=== PATIENT | male | born 1955 | race Caucasian/White ===

== ENCOUNTER 2017-10-19 22:39 | Inpatient (IN) | payer OTHER ==
[2017-10-19] MEDS: ALBUTEROL 0.5% (NEB) 2.5 MG/0.5 ML AMP INH (23:16)
[2017-10-19 23:19] LABS: ADD MAN DIFF? NO
[2017-10-19] MEDS: DEXTROSE 50% 50 ML SYRINGE IV (23:19)
[2017-10-19 23:21] LABS: BASOPHILS % 0.7 % (0.0-2.0); EOSINOPHILS # 0.1 10^3/ul (0.0-0.5); HEMOGLOBIN 10.1 g/dl (14.0-18.0); LYMPHOCYTES # 1.3 10^3/ul (0.8-2.9); LYMPHOCYTES % 29.3 % (15.0-51.0); MEAN CORPUSCULAR HEMOGLOBIN 29.5 pg (29.0-33.0); MEAN CORPUSCULAR HGB CONC 32.6 g/dl (32.0-37.0); MEAN CORPUSCULAR VOLUME 90.6 fl (82.0-101.0); MEAN PLATELET VOLUME 11.5 fl (7.4-10.4); MONOCYTE # 0.5 10^3/ul (0.3-0.9); MONOCYTES % 10.9 % (0.0-11.0); NEUTROPHIL # 2.4 10^3/ul (1.6-7.5); NEUTROPHILS % 55.9 % (39.0-77.0); PLATELET COUNT 145 10^3/UL (140-415); RED BLOOD COUNT 3.42 10^6/ul (4.70-6.10); RED CELL DISTRIBUTION WIDTH 12.7 % (11.5-14.5)
[2017-10-19 23:21] LABS: WHITE BLOOD COUNT 4.3 10^3/ul (4.8-10.8)
[2017-10-19] MEDS: CA CHLORIDE 10% 10 ML SYRINGE IV (23:23)
[2017-10-19] MEDS: INSULIN REGULAR, HUMAN 100 UNIT/1 ML 3ML VIAL IVP (23:26)
[2017-10-19 23:36] LABS: INR 1.17; PROTIME 15.1 Sec (11.9-14.9); PT RATIO 1.2
[2017-10-19 23:49] LABS: ALANINE AMINOTRANSFERASE 27 IU/L (13-69); ALBUMIN 3.7 g/dl (3.3-4.9); ALBUMIN/GLOBULIN RATIO 1.42; ALKALINE PHOSPHATASE 75 IU/L (42-121); ANION GAP 28 (8-16); ASPARTATE AMINO TRANSFERASE 11 IU/L (15-46); BLOOD UREA NITROGEN 90 mg/dl (7-20); CALCIUM 8.4 mg/dl (8.4-10.2); CARBON DIOXIDE 19 mmol/L (21-31); CHLORIDE 93 mmol/L (97-110); GLUCOSE 102 mg/dl (70-220); PHOSPHORUS 8.2 mg/dl (2.5-4.9); SODIUM 133 mmol/L (135-144); TOTAL PROTEIN 6.3 g/dl (6.1-8.1)
[2017-10-19 23:53] LABS: POTASSIUM 7.1 mmol/L (3.5-5.1)
[2017-10-19 23:58] LABS: CREATININE 22.18 mg/dl (0.61-1.24); TROPONIN-I 0.037 ng/ml (0.00-0.12)
[2017-10-20] MEDS: NA POLYST SULFON 15 GM/60 ML BTL PO ×2 (02:25→03:18)
[2017-10-20] MEDS ORDERED: ALBUTEROL/IPRATROPIUM (NEB) 3 ML AMP NEB ×2 (02:30→18:30)
[2017-10-20] MEDS ORDERED: ONDANSETRON 4 MG INJ IV (02:30)
[2017-10-20] MEDS ORDERED: NACL 0.9% 3 ML SYG IV (02:30)
[2017-10-20 02:34] LABS: POTASSIUM 5.1 mmol/L (3.5-5.1)
[2017-10-20] MEDS: PANTOPRAZOLE 40 MG INJ IV (03:17)
[2017-10-20 03:23] LABS: TROPONIN-I 0.027 ng/ml (0.00-0.12)
[2017-10-20] MEDS: ALBUTEROL/IPRATROPIUM (NEB) 3 ML AMP NEB ×4 (04:00→16:28)
[2017-10-20] MEDS ORDERED: SOD CHLORIDE 0.9% 1,000 ML IV ×2 (06:35→18:40)
[2017-10-20] MEDS ORDERED: HEPARIN 1000 UNITS/ML 10 ML INJ HE (07:00)
[2017-10-20] MEDS ORDERED: ALBUMIN HUMAN 25% 50 ML IV ×2 (07:00→19:00)
[2017-10-20 11:01] LABS: ANION GAP 30 (8-16); BLOOD UREA NITROGEN 89 mg/dl (7-20); CALCIUM 9.2 mg/dl (8.4-10.2); CARBON DIOXIDE 18 mmol/L (21-31); CHLORIDE 96 mmol/L (97-110); GLUCOSE 93 mg/dl (70-220); SODIUM 139 mmol/L (135-144)
[2017-10-20 11:06] LABS: POTASSIUM 5.2 mmol/L (3.5-5.1)
[2017-10-20 11:07] LABS: CREATININE 22.83 mg/dl (0.61-1.24)
[2017-10-20 11:12] LABS: TROPONIN-I 0.022 ng/ml (0.00-0.12)
[2017-10-20 11:31] LABS: HEPATITIS B SURFACE ANTIGEN NEGATIVE (NEGATIVE)
[2017-10-20] MEDS: HEPARIN 1000 UNITS/ML 10 ML INJ CATHETER (11:56)
[2017-10-20] MEDS: AMLODIPINE 10 MG TAB PO (11:59)
[2017-10-20] MEDS: PANTOPRAZOLE (EC) 40 MG TAB PO (11:59)
[2017-10-20] MEDS: FOLIC ACID 1 MG TAB PO (11:59)
[2017-10-20] MEDS: SEVELAMER 800 MG TAB PO ×3 (11:59→18:40)
[2017-10-20] MEDS: CALCIUM ACETATE 667 MG CAP PO ×3 (11:59→18:40)
[2017-10-20 12:12] LABS: HEPATITIS B SURFACE ANTIBODY POSITIVE (NEGATIVE)
[2017-10-20 14:26] LABS: POTASSIUM 4.3 mmol/L (3.5-5.1)
[2017-10-20 14:28] LABS: TROPONIN-I 0.032 ng/ml (0.00-0.12)
[2017-10-20] MEDS: ISOSORBIDE DINITRATE 10 MG TAB PO ×2 (17:13→20:43)
[2017-10-20] MEDS ORDERED: LORAZEPAM 0.5 MG TAB PO (18:00)
[2017-10-20] MEDS ORDERED: LORAZEPAM 2 MG INJ IV (18:30)
[2017-10-20] MEDS ORDERED: SODIUM CHLORIDE 0.9% 1L BAG IV (19:00)
[2017-10-20 19:30] LABS: CREATINE KINASE 235 IU/L (23-200)
[2017-10-20 19:43] LABS: CK INDEX 0.3; TROPONIN-I 0.033 ng/ml (0.00-0.12)
[2017-10-20 19:44] LABS: CK-MB 0.76 ng/ml (0.0-2.4)
[2017-10-20] MEDS: ATORVASTATIN 10 MG TAB PO (20:43)
[2017-10-20] MEDS: DOXAZOSIN 4 MG TAB PO (20:43)
[2017-10-20] MEDS: ONDANSETRON 4 MG INJ IV (20:44)
[2017-10-20] MEDS: ACETAMINOPHEN 325 MG TAB PO (20:55)
[2017-10-20] MEDS ORDERED: DOXAZOSIN 2 MG TAB PO ×2 (21:00)
[2017-10-21] MEDS: PANTOPRAZOLE (EC) 40 MG TAB PO (05:27)
[2017-10-21 06:24] LABS: ADD MAN DIFF? NO
[2017-10-21 06:27] LABS: BASOPHILS % 0.4 % (0.0-2.0); EOSINOPHILS # 0.1 10^3/ul (0.0-0.5); EOSINOPHILS % 2.4 % (0.0-7.0); HEMATOCRIT 29.3 % (42.0-52.0); HEMOGLOBIN 9.5 g/dl (14.0-18.0); LYMPHOCYTES # 1.1 10^3/ul (0.8-2.9); LYMPHOCYTES % 24.2 % (15.0-51.0); MEAN CORPUSCULAR HEMOGLOBIN 29.3 pg (29.0-33.0); MEAN CORPUSCULAR HGB CONC 32.4 g/dl (32.0-37.0); MEAN CORPUSCULAR VOLUME 90.4 fl (82.0-101.0); MEAN PLATELET VOLUME 11.4 fl (7.4-10.4); MONOCYTE # 0.4 10^3/ul (0.3-0.9); MONOCYTES % 8.7 % (0.0-11.0); NEUTROPHILS % 63.9 % (39.0-77.0); PLATELET COUNT 142 10^3/UL (140-415); RED BLOOD COUNT 3.24 10^6/ul (4.70-6.10); RED CELL DISTRIBUTION WIDTH 13.2 % (11.5-14.5)
[2017-10-21 06:27] LABS: WHITE BLOOD COUNT 4.6 10^3/ul (4.8-10.8)
[2017-10-21 07:31] LABS: ANION GAP 25 (8-16); BLOOD UREA NITROGEN 60 mg/dl (7-20); CALCIUM 8.5 mg/dl (8.4-10.2); CARBON DIOXIDE 26 mmol/L (21-31); CHLORIDE 97 mmol/L (97-110); GLUCOSE 82 mg/dl (70-220); POTASSIUM 5.7 mmol/L (3.5-5.1); SODIUM 142 mmol/L (135-144)
[2017-10-21 07:40] LABS: CREATININE 17.07 mg/dl (0.61-1.24)
[2017-10-21 08:01] LABS: PHOSPHORUS 6.9 mg/dl (2.5-4.9)
[2017-10-21 08:01] LABS: MAGNESIUM 2.2 mg/dl (1.7-2.5)
[2017-10-21] MEDS: ISOSORBIDE DINITRATE 10 MG TAB PO ×2 (09:00→22:12)
[2017-10-21] MEDS: AMLODIPINE 10 MG TAB PO (09:00)
[2017-10-21] MEDS: DOXAZOSIN 4 MG TAB PO ×2 (09:00→22:12)
[2017-10-21] MEDS: LEVOFLOXACIN 500 MG TAB PO (09:48)
[2017-10-21] MEDS: CALCIUM ACETATE 667 MG CAP PO ×3 (09:48→17:20)
[2017-10-21] MEDS: FOLIC ACID 1 MG TAB PO (09:48)
[2017-10-21] MEDS: SEVELAMER 800 MG TAB PO ×3 (09:48→17:20)
[2017-10-21] MEDS: ONDANSETRON 4 MG INJ IV (11:18)
[2017-10-21] MEDS: GUAIFENESIN/CODEINE 5ML CUP PO ×2 (13:18→22:11)
[2017-10-21] MEDS: HEPARIN 1000 UNITS/ML 10 ML INJ CATHETER (22:00)
[2017-10-21] MEDS: ATORVASTATIN 10 MG TAB PO (22:11)
[2017-10-21] MEDS: NA POLYST SULFON 15 GM/60 ML BTL PO (22:43)
[2017-10-22] MEDS: PANTOPRAZOLE (EC) 40 MG TAB PO (06:46)
[2017-10-22 07:47] LABS: ANION GAP 20 (8-16); BLOOD UREA NITROGEN 34 mg/dl (7-20); CALCIUM 9.4 mg/dl (8.4-10.2); CARBON DIOXIDE 29 mmol/L (21-31); CHLORIDE 97 mmol/L (97-110); CREATININE 10.97 mg/dl (0.61-1.24); GLUCOSE 85 mg/dl (70-220); SODIUM 140 mmol/L (135-144)
[2017-10-22 07:52] LABS: POTASSIUM 6.2 mmol/L (3.5-5.1)
[2017-10-22] MEDS ORDERED: CA CHLORIDE 10% 10 ML SYRINGE IV (08:32)
[2017-10-22] MEDS: DOXAZOSIN 4 MG TAB PO ×2 (09:00→21:36)
[2017-10-22] MEDS: AMLODIPINE 10 MG TAB PO (09:00)
[2017-10-22] MEDS ORDERED: CALCIUM CHLORIDE 10% 1 GM in DEXTROSE 5% 100 ML IV (09:00)
[2017-10-22] MEDS: ISOSORBIDE DINITRATE 10 MG TAB PO ×2 (09:00→21:00)
[2017-10-22] MEDS: SEVELAMER 800 MG TAB PO ×4 (09:09→18:47)
[2017-10-22] MEDS: NA POLYST SULFON 15 GM/60 ML BTL PO (09:10)
[2017-10-22] MEDS: CALCIUM ACETATE 667 MG CAP PO ×4 (09:10→18:47)
[2017-10-22] MEDS: FOLIC ACID 1 MG TAB PO (09:10)
[2017-10-22] MEDS: ALBUTEROL 0.083% (NEB) 2.5 MG/3 ML AMP NEB (09:26)
[2017-10-22] MEDS: DEXTROSE 50% 50 ML SYRINGE IV (11:46)
[2017-10-22] MEDS: INSULIN REGULAR, HUMAN 100 UNIT/1 ML 3ML VIAL IV (11:47)
[2017-10-22] MEDS ORDERED: CALCIUM ACETATE 667 MG CAP PO (12:00)
[2017-10-22] MEDS: HEPARIN 1000 UNITS/ML 10 ML INJ CATHETER (13:28)
[2017-10-22] MEDS: GLUCAGON 1 MG INJ IM (16:07)
[2017-10-22] MEDS: ATORVASTATIN 10 MG TAB PO (21:35)
[2017-10-23 06:04] LABS: WHITE BLOOD COUNT 4.6 10^3/ul (4.8-10.8)
[2017-10-23 06:04] LABS: ADD MAN DIFF? NO
[2017-10-23 06:05] LABS: BASOPHILS % 0.4 % (0.0-2.0); EOSINOPHILS # 0.2 10^3/ul (0.0-0.5); EOSINOPHILS % 3.3 % (0.0-7.0); HEMATOCRIT 34.8 % (42.0-52.0); LYMPHOCYTES # 1.2 10^3/ul (0.8-2.9); LYMPHOCYTES % 26.4 % (15.0-51.0); MEAN CORPUSCULAR HGB CONC 31.6 g/dl (32.0-37.0); MEAN CORPUSCULAR VOLUME 91.8 fl (82.0-101.0); MEAN PLATELET VOLUME 10.9 fl (7.4-10.4); MONOCYTE # 0.4 10^3/ul (0.3-0.9); MONOCYTES % 9.2 % (0.0-11.0); NEUTROPHIL # 2.8 10^3/ul (1.6-7.5); NEUTROPHILS % 60.5 % (39.0-77.0); PLATELET COUNT 163 10^3/UL (140-415); RED BLOOD COUNT 3.79 10^6/ul (4.70-6.10); RED CELL DISTRIBUTION WIDTH 12.7 % (11.5-14.5)
[2017-10-23] MEDS: PANTOPRAZOLE (EC) 40 MG TAB PO (06:05)
[2017-10-23 06:52] LABS: MAGNESIUM 2.1 mg/dl (1.7-2.5)
[2017-10-23 06:52] LABS: PHOSPHORUS 4.8 mg/dl (2.5-4.9)
[2017-10-23 07:16] LABS: ALANINE AMINOTRANSFERASE 35 IU/L (13-69); ALBUMIN/GLOBULIN RATIO 1.48; ALKALINE PHOSPHATASE 60 IU/L (42-121); ANION GAP 19 (8-16); ASPARTATE AMINO TRANSFERASE 29 IU/L (15-46); BLOOD UREA NITROGEN 33 mg/dl (7-20); CALCIUM 9.3 mg/dl (8.4-10.2); CARBON DIOXIDE 31 mmol/L (21-31); CHLORIDE 98 mmol/L (97-110); CREATININE 9.57 mg/dl (0.61-1.24); GLUCOSE 99 mg/dl (70-220); POTASSIUM 4.8 mmol/L (3.5-5.1); SODIUM 143 mmol/L (135-144); TOTAL PROTEIN 6.7 g/dl (6.1-8.1)
[2017-10-23] MEDS: SEVELAMER 800 MG TAB PO ×3 (08:23→17:42)
[2017-10-23] MEDS: CALCIUM ACETATE 667 MG CAP PO ×3 (08:24→17:42)
[2017-10-23] MEDS: DOXAZOSIN 4 MG TAB PO (08:25)
[2017-10-23] MEDS: ISOSORBIDE DINITRATE 10 MG TAB PO (08:26)
[2017-10-23] MEDS: FOLIC ACID 1 MG TAB PO (08:26)
[2017-10-23] MEDS: AMLODIPINE 10 MG TAB PO (08:26)
[2017-10-23] MEDS: AZITHROMYCIN 250 MG TAB PO (08:27)
[2017-10-23] MEDS: ONDANSETRON 4 MG INJ IV (15:26)
[2017-10-23 17:25] LABS: ANION GAP 19 (8-16); BLOOD UREA NITROGEN 40 mg/dl (7-20); CALCIUM 9.1 mg/dl (8.4-10.2); CARBON DIOXIDE 29 mmol/L (21-31); CHLORIDE 95 mmol/L (97-110); CREATININE 10.41 mg/dl (0.61-1.24); GLUCOSE 105 mg/dl (70-220); POTASSIUM 4.7 mmol/L (3.5-5.1); SODIUM 138 mmol/L (135-144)
[2017-10-23] MEDS: hydrALAzine 20 MG INJ IV (18:59)
== END 2017-10-23 20:16 | disposition home or self-care (01) | DRG 640 ==
LOC: E/R 22:39 → MS4 10-20 02:16
PROC: 5A1D70Z Performance of Urinary Filtration, Intermittent, Less than 6 Hours Per Day (ICD-10-PCS; principal; 2017-10-22)
DX: E87.5 Hyperkalemia (principal); N18.6 End stage renal disease; E11.22 Type 2 diabetes mellitus with diabetic chronic kidney disease; N17.9 Acute kidney failure, unspecified; I12.0 Hypertensive chronic kidney disease with stage 5 chronic kidney disease or end stage renal disease; E83.41 Hypermagnesemia; Z99.2 Dependence on renal dialysis; Z91.15 Patient's noncompliance with renal dialysis; R00.1 Bradycardia, unspecified; E83.39 Other disorders of phosphorus metabolism; D72.819 Decreased white blood cell count, unspecified; D63.1 Anemia in chronic kidney disease; E78.00 Pure hypercholesterolemia, unspecified; J20.9 Acute bronchitis, unspecified; N40.0 Benign prostatic hyperplasia without lower urinary tract symptoms
CPT/HCPCS: 36415; 71045; 78582; 80048; 80053; 82550; 82553; 82962; 83735; 84100; 84132; 84484; 85025; 85610; 85730; 86706; 86850; 86900; 86901; 87040; 87081; 87340; 90935; 93005; 94640; 94644; 94664; 96374; 96375; 99291-25

== ENCOUNTER 2018-05-10 09:50 | Inpatient (IN) | payer OTHER ==
[2018-05-10 11:03] LABS: ADD MAN DIFF? NO
[2018-05-10 11:06] LABS: WHITE BLOOD COUNT 6.3 10^3/ul (4.8-10.8)
[2018-05-10 11:06] LABS: BASOPHIL # 0.1 10^3/ul (0.0-0.1); BASOPHILS % 0.8 % (0.0-2.0); EOSINOPHILS # 0.2 10^3/ul (0.0-0.5); EOSINOPHILS % 3.2 % (0.0-7.0); HEMATOCRIT 35.4 % (42.0-52.0); HEMOGLOBIN 11.4 g/dl (14.0-18.0); LYMPHOCYTES # 0.7 10^3/ul (0.8-2.9); LYMPHOCYTES % 10.6 % (15.0-51.0); MEAN CORPUSCULAR HEMOGLOBIN 29.9 pg (29.0-33.0); MEAN CORPUSCULAR HGB CONC 32.2 g/dl (32.0-37.0); MEAN CORPUSCULAR VOLUME 92.9 fl (82.0-101.0); MEAN PLATELET VOLUME 10.8 fl (7.4-10.4); MONOCYTE # 0.4 10^3/ul (0.3-0.9); NEUTROPHIL # 4.9 10^3/ul (1.6-7.5); NEUTROPHILS % 78.1 % (39.0-77.0); PLATELET COUNT 201 10^3/UL (140-415); RED BLOOD COUNT 3.81 10^6/ul (4.70-6.10); RED CELL DISTRIBUTION WIDTH 14.7 % (11.5-14.5)
[2018-05-10 11:32] LABS: ANION GAP 15 (8-16); BLOOD UREA NITROGEN 38 mg/dl (7-20); CALCIUM 9.3 mg/dl (8.4-10.2); CARBON DIOXIDE 28 mmol/L (21-31); CHLORIDE 99 mmol/L (97-110); CREATININE 9.66 mg/dl (0.61-1.24); GLUCOSE 157 mg/dl (70-220); POTASSIUM 5.3 mmol/L (3.5-5.1); SODIUM 137 mmol/L (135-144)
[2018-05-10 11:35] LABS: INR 1.22; PROTIME 15.6 Sec (11.9-14.9); PT RATIO 1.2
[2018-05-10 11:43] LABS: TROPONIN-I 0.015 ng/ml (0.000-0.120)
[2018-05-10 12:23] LABS: MAGNESIUM 2.5 mg/dl (1.7-2.5)
[2018-05-10 12:26] LABS: PARTIAL THROMBOPLASTIN TIME 170.3 Sec (25.0-35.0)
[2018-05-10] MEDS ORDERED: ONDANSETRON 4 MG INJ IV ×3 (12:30→23:00)
[2018-05-10] MEDS ORDERED: ACETAMINOPHEN 325 MG TAB PO ×3 (12:30→23:00)
[2018-05-10] MEDS ORDERED: GUAIFENESIN/DM 5ML CUP PO (13:30)
[2018-05-10] MEDS ORDERED: DOCUSATE SODIUM 100 MG CAP PO (13:30)
[2018-05-10] MEDS ORDERED: NACL 0.9% 3 ML SYG IV (13:30)
[2018-05-10] MEDS ORDERED: BISACODYL 10 MG SUPP PR (13:30)
[2018-05-10] MEDS ORDERED: MAGNESIUM HYDROXIDE 30ML CUP PO (13:30)
[2018-05-10] MEDS: NA POLYST SULFON 15 GM/60 ML BTL PO (14:04)
[2018-05-10 14:24] LABS: FREE T4 (FREE THYROXINE) 1.59 ng/dl (0.78-2.44)
[2018-05-10] MEDS ORDERED: FAMOTIDINE 20 MG TAB PO ×2 (17:00→21:00)
[2018-05-10] MEDS: CALCIUM ACETATE 667 MG CAP PO (17:54)
[2018-05-10] MEDS: hydrALAzine 20 MG INJ IV (17:55)
[2018-05-10] MEDS: morphine 2 MG INJ IV (18:15)
[2018-05-10] MEDS: NITROGLYCERIN (SL) 0.4 MG TAB SL ×2 (18:19→19:59)
[2018-05-10] MEDS: AMLODIPINE 10 MG TAB PO (18:30)
[2018-05-10] MEDS: LISINOPRIL 20 MG TAB PO (18:31)
[2018-05-10 18:53] LABS: CREATINE KINASE 62 IU/L (23-200)
[2018-05-10 19:07] LABS: CK INDEX 1.5; CK-MB 0.91 ng/ml (0.0-2.4); TROPONIN-I 0.021 ng/ml (0.000-0.120)
[2018-05-10] MEDS: ENOXAPARIN 80 MG/0.8 ML SYG SC (19:15)
[2018-05-10] MEDS: ASPIRIN 81 MG TAB PO (19:15)
[2018-05-10 19:51] LABS: TROPONIN-I 0.028 ng/ml (0.000-0.120)
[2018-05-10] MEDS ORDERED: LIDOCAINE 1% (MDV) 20 ML INJ (19:59)
[2018-05-10] MEDS ORDERED: MIDAZOLAM 1 MG/ML 2 ML INJ ×2 (19:59→20:55)
[2018-05-10] MEDS ORDERED: FENTAnyl 50 MCG/ML VIAL ×2 (20:00→20:55)
[2018-05-10] MEDS ORDERED: VERAPAMIL 5 MG INJ (20:00)
[2018-05-10] MEDS ORDERED: IODIXANOL LOCM 100 ML BTL ×3 (20:01→21:38)
[2018-05-10] MEDS ORDERED: NITROGLYCERIN (IC) 100 MCG/ML INJ (20:01)
[2018-05-10] MEDS ORDERED: IOHEXOL 350MG/ML 50 ML BTL (20:01)
[2018-05-10] MEDS ORDERED: BIVALIRUDIN 250MG /NS 50 ML 50 ML IVPB ×2 (20:51→21:23)
[2018-05-10] MEDS ORDERED: DOXAZOSIN 4 MG TAB PO (21:00)
[2018-05-10] MEDS ORDERED: ATORVASTATIN 10 MG TAB PO (21:00)
[2018-05-10] MEDS ORDERED: TICAGRELOR 90 MG TABLET ×2 (21:04→21:05)
[2018-05-10] MEDS ORDERED: NITROGLYCERIN AEROSOL (4.9 GM) (21:48)
[2018-05-10] MEDS ORDERED: AL HYDROX/MG HYDROX/SIMETH 30 ML CUP PO (23:00)
[2018-05-10] MEDS ORDERED: CEFAZOLIN 1 GM/50 ML (PMX) 50 ML IVPB (23:08)
[2018-05-10] MEDS: HEPARIN 5,000 UNIT/0.5 ML VIAL SC (23:58)
[2018-05-10] MEDS: ISOSORBIDE DINITRATE 10 MG TAB PO (23:59)
[2018-05-11] MEDS: NITROGLYCERIN 50 MG/D5W (PMX) 250 ML IV
[2018-05-11] MEDS: morphine 2 MG INJ IV ×3 (01:37→10:19)
[2018-05-11 01:39] LABS: INR 4.74; PROTIME 46.2 Sec (11.9-14.9); PT RATIO 3.6
[2018-05-11 01:54] LABS: PARTIAL THROMBOPLASTIN TIME 133.7 Sec (25.0-35.0)
[2018-05-11 04:11] LABS: ADD MAN DIFF? NO
[2018-05-11 04:16] LABS: WHITE BLOOD COUNT 7.6 10^3/ul (4.8-10.8)
[2018-05-11 04:16] LABS: BASOPHILS % 0.5 % (0.0-2.0); EOSINOPHILS % 0.4 % (0.0-7.0); HEMOGLOBIN 10.9 g/dl (14.0-18.0); LYMPHOCYTES # 0.9 10^3/ul (0.8-2.9); LYMPHOCYTES % 11.8 % (15.0-51.0); MEAN CORPUSCULAR HEMOGLOBIN 30.4 pg (29.0-33.0); MEAN CORPUSCULAR VOLUME 91.9 fl (82.0-101.0); MEAN PLATELET VOLUME 9.9 fl (7.4-10.4); MONOCYTE # 0.5 10^3/ul (0.3-0.9); MONOCYTES % 6.7 % (0.0-11.0); NEUTROPHIL # 6.1 10^3/ul (1.6-7.5); NEUTROPHILS % 80.2 % (39.0-77.0); PLATELET COUNT 209 10^3/UL (140-415); RED BLOOD COUNT 3.59 10^6/ul (4.70-6.10); RED CELL DISTRIBUTION WIDTH 14.8 % (11.5-14.5)
[2018-05-11 04:36] LABS: INR 3.09; PROTIME 32.8 Sec (11.9-14.9); PT RATIO 2.6
[2018-05-11 04:43] LABS: ANION GAP 16 (8-16); BLOOD UREA NITROGEN 46 mg/dl (7-20); CALCIUM 8.8 mg/dl (8.4-10.2); CARBON DIOXIDE 24 mmol/L (21-31); CHLORIDE 103 mmol/L (97-110); CREATINE KINASE 316 IU/L (23-200); CREATININE 11.65 mg/dl (0.61-1.24); GLUCOSE 111 mg/dl (70-220); POTASSIUM 4.7 mmol/L (3.5-5.1); SODIUM 138 mmol/L (135-144)
[2018-05-11 04:48] LABS: ALANINE AMINOTRANSFERASE 13 IU/L (13-69); ALBUMIN 3.4 g/dl (3.3-4.9); ALKALINE PHOSPHATASE 89 IU/L (42-121); ANION GAP 16 (8-16); ASPARTATE AMINO TRANSFERASE 30 IU/L (15-46); BILIRUBIN,INDIRECT 0.1 mg/dl (0-1.1); BILIRUBIN,TOTAL 0.1 mg/dl (0.2-1.3); BLOOD UREA NITROGEN 45 mg/dl (7-20); CALCIUM 8.8 mg/dl (8.4-10.2); CARBON DIOXIDE 24 mmol/L (21-31); CHLORIDE 103 mmol/L (97-110); CHOL/HDL RATIO 3.3 RATIO; CHOLESTEROL 118 mg/dl (100-200); CREATININE 11.63 mg/dl (0.61-1.24); GLUCOSE 111 mg/dl (70-220); HDL CHOLESTEROL 35 mg/dl (30-78); LDL CHOLESTEROL,CALCULATED 60 mg/dl; POTASSIUM 4.8 mmol/L (3.5-5.1); SODIUM 138 mmol/L (135-144); TRIGLYCERIDES 117 mg/dl (0-149)
[2018-05-11 04:51] LABS: PARTIAL THROMBOPLASTIN TIME > 180.0 Sec (25.0-35.0)
[2018-05-11 04:58] LABS: CK INDEX 10.7
[2018-05-11 05:07] LABS: MAGNESIUM 2.4 mg/dl (1.7-2.5)
[2018-05-11 05:45] LABS: PROTIME 26.8 Sec (11.9-14.9); PT RATIO 2.1
[2018-05-11 06:00] LABS: PARTIAL THROMBOPLASTIN TIME 94.5 Sec (25.0-35.0)
[2018-05-11] MEDS: HEPARIN 1000 UNITS/ML 10 ML INJ IV (06:35)
[2018-05-11] MEDS: HEPARIN 25000 UNITS/250 ML 250 ML IV (06:37)
[2018-05-11] MEDS ORDERED: HEPARIN 1000 UNITS/ML 10 ML INJ IV (08:00)
[2018-05-11] MEDS ORDERED: LISINOPRIL 20 MG TAB PO (09:00)
[2018-05-11] MEDS ORDERED: AMLODIPINE 10 MG TAB PO (09:00)
[2018-05-11] MEDS ORDERED: ASPIRIN 81 MG TAB PO (09:00)
[2018-05-11] MEDS ORDERED: FOLIC ACID 1 MG TAB PO (09:00)
[2018-05-11] MEDS: TICAGRELOR 90 MG TABLET PO (09:46)
[2018-05-11] MEDS ORDERED: ATORVASTATIN 10 MG TAB PO (21:00)
[2018-05-11] MEDS ORDERED: ATORVASTATIN 80 MG TAB PO (21:00)
== END 2018-05-11 11:00 | disposition short-term general hospital (02) | DRG 270 ==
LOC: E/R 09:50 → TEL 12:08 → REC 20:00 → ICU 23:18
PROC: 027034Z Dilation of Coronary Artery, One Artery with Drug-eluting Intraluminal Device, Percutaneous Approach (ICD-10-PCS; principal; 2018-05-10 20:00)
PROC: 5A02210 Assistance with Cardiac Output using Balloon Pump, Continuous (ICD-10-PCS; 2018-05-10 20:00)
PROC: 4A023N7 Measurement of Cardiac Sampling and Pressure, Left Heart, Percutaneous Approach (ICD-10-PCS; 2018-05-10 20:00)
PROC: B211YZZ Fluoroscopy of Multiple Coronary Arteries using Other Contrast (ICD-10-PCS; 2018-05-10 20:00)
DX: I21.19 ST elevation (STEMI) myocardial infarction involving other coronary artery of inferior wall (principal); I12.0 Hypertensive chronic kidney disease with stage 5 chronic kidney disease or end stage renal disease; N18.6 End stage renal disease; I25.10 Atherosclerotic heart disease of native coronary artery without angina pectoris; E78.5 Hyperlipidemia, unspecified; D63.1 Anemia in chronic kidney disease; E87.5 Hyperkalemia; I25.82 Chronic total occlusion of coronary artery; I22.0 Subsequent ST elevation (STEMI) myocardial infarction of anterior wall
CPT/HCPCS: 36415; 71045; 80048; 80053; 80061; 82550; 82553; 82962; 83735; 84439; 84443; 84484; 85025; 85610; 85730; 87081; 92980; 93005; 93306; 93458; 93880; 99285-25; G0378

== ENCOUNTER 2018-05-29 12:09 | Emergency (ER) | payer OTHER ==
[2018-05-29 12:25] LABS: ADD MAN DIFF? NO
[2018-05-29 12:35] LABS: WHITE BLOOD COUNT 5.7 10^3/ul (4.8-10.8)
[2018-05-29 12:35] LABS: BASOPHIL # 0.1 10^3/ul (0.0-0.1); EOSINOPHILS # 0.2 10^3/ul (0.0-0.5); EOSINOPHILS % 4.2 % (0.0-7.0); HEMATOCRIT 33.7 % (42.0-52.0); HEMOGLOBIN 10.8 g/dl (14.0-18.0); LYMPHOCYTES # 1.3 10^3/ul (0.8-2.9); LYMPHOCYTES % 23.2 % (15.0-51.0); MEAN CORPUSCULAR HEMOGLOBIN 30.7 pg (29.0-33.0); MEAN CORPUSCULAR VOLUME 95.7 fl (82.0-101.0); MEAN PLATELET VOLUME 10.6 fl (7.4-10.4); MONOCYTE # 0.6 10^3/ul (0.3-0.9); MONOCYTES % 9.8 % (0.0-11.0); NEUTROPHIL # 3.5 10^3/ul (1.6-7.5); NEUTROPHILS % 61.3 % (39.0-77.0); PLATELET COUNT 214 10^3/UL (140-415); RED BLOOD COUNT 3.52 10^6/ul (4.70-6.10); RED CELL DISTRIBUTION WIDTH 14.8 % (11.5-14.5)
[2018-05-29] MEDS: SOD CHLORIDE 0.9% 1,000 ML IV (12:40)
[2018-05-29] MEDS: ONDANSETRON 4 MG INJ IV (12:40)
[2018-05-29 12:49] LABS: HEMOGLOBIN A1C 5.2 % (0-5.9)
[2018-05-29 12:52] LABS: ANION GAP 15 (8-16); BLOOD UREA NITROGEN 38 mg/dl (7-20); CALCIUM 8.9 mg/dl (8.4-10.2); CARBON DIOXIDE 24 mmol/L (21-31); CHLORIDE 104 mmol/L (97-110); CHOL/HDL RATIO 2.8 RATIO; CHOLESTEROL 98 mg/dl (100-200); CREATININE 8.47 mg/dl (0.61-1.24); GLUCOSE 120 mg/dl (70-220); HDL CHOLESTEROL 35 mg/dl (30-78); LDL CHOLESTEROL,CALCULATED 19 mg/dl; POTASSIUM 4.4 mmol/L (3.5-5.1); SODIUM 139 mmol/L (135-144); TRIGLYCERIDES 220 mg/dl (0-149)
[2018-05-29 12:57] LABS: INR 1.24; PROTIME 15.8 Sec (11.9-14.9); PT RATIO 1.2
[2018-05-29 12:58] LABS: PARTIAL THROMBOPLASTIN TIME 33.7 Sec (23.0-35.0)
[2018-05-29 13:04] LABS: TROPONIN-I 0.063 ng/ml (0.000-0.120)
[2018-05-29] MEDS: NITROGLYCERIN (SL) 0.4 MG TAB SL (13:16)
[2018-05-29] MEDS: ASPIRIN 81 MG TAB PO (13:16)
[2018-05-29 14:10] LABS: LACTIC ACID 0.9 mmol/L (0.5-2.0)
[2018-05-29] MEDS: KETOROLAC 15 MG INJ IV (14:10)
[2018-05-29] MEDS: HYDROCODONE/APAP (5/325) TAB PO (14:27)
== END 2018-05-29 17:34 | disposition short-term general hospital (02) ==
LOC: E/R 12:09
DX: R55 Syncope and collapse (principal); R07.9 Chest pain, unspecified; I10 Essential (primary) hypertension; Z79.01 Long term (current) use of anticoagulants; Z79.82 Long term (current) use of aspirin; Z87.891 Personal history of nicotine dependence
CPT/HCPCS: 36415; 70450; 71045; 80048; 80061; 83036; 83605; 84484; 85025; 85610; 85730; 93005; 96374; 96375; 99285-25

== ENCOUNTER 2019-01-29 16:26 | Inpatient (IN) | payer OTHER ==
[2019-01-29 16:41] LABS: ADD MAN DIFF? NO
[2019-01-29 16:47] LABS: BASOPHIL # 0.1 10^3/ul (0.0-0.1); BASOPHILS % 0.9 % (0.0-2.0); EOSINOPHILS # 0.5 10^3/ul (0.0-0.5); EOSINOPHILS % 6.5 % (0.0-7.0); HEMATOCRIT 29.1 % (42.0-52.0); HEMOGLOBIN 9.3 g/dl (14.0-18.0); LYMPHOCYTES % 26.5 % (15.0-51.0); MEAN CORPUSCULAR HEMOGLOBIN 29.4 pg (29.0-33.0); MEAN CORPUSCULAR VOLUME 92.1 fl (82.0-101.0); MEAN PLATELET VOLUME 11.7 fl (7.4-10.4); MONOCYTE # 0.7 10^3/ul (0.3-0.9); NEUTROPHIL # 4.2 10^3/ul (1.6-7.5); NEUTROPHILS % 56.8 % (39.0-77.0); PLATELET COUNT 106 10^3/UL (140-415); RED BLOOD COUNT 3.16 10^6/ul (4.70-6.10); RED CELL DISTRIBUTION WIDTH 14.9 % (11.5-14.5)
[2019-01-29 16:47] LABS: WHITE BLOOD COUNT 7.4 10^3/ul (4.8-10.8)
[2019-01-29 17:04] LABS: PROTIME 16.3 Sec (11.9-14.9); PT RATIO 1.3
[2019-01-29 17:05] LABS: PARTIAL THROMBOPLASTIN TIME 27.5 Sec (23.0-35.0)
[2019-01-29 17:18] LABS: ALANINE AMINOTRANSFERASE 22 IU/L (13-69); ALBUMIN 3.8 g/dl (3.3-4.9); ALBUMIN/GLOBULIN RATIO 1.52; ALKALINE PHOSPHATASE 67 IU/L (42-121); ANION GAP 10 (5-13); ASPARTATE AMINO TRANSFERASE 14 IU/L (15-46); BILIRUBIN,INDIRECT 0.1 mg/dl (0-1.1); BILIRUBIN,TOTAL 0.1 mg/dl (0.2-1.3); BLOOD UREA NITROGEN 32 mg/dl (7-20); CALCIUM 8.7 mg/dl (8.4-10.2); CARBON DIOXIDE 26 mmol/L (21-31); CHLORIDE 102 mmol/L (97-110); Estimated GFR 7 mL/min (>60); GLUCOSE 126 mg/dl (70-220); POTASSIUM 3.8 mmol/L (3.5-5.1); SODIUM 138 mmol/L (135-144); TOTAL PROTEIN 6.3 g/dl (6.1-8.1)
[2019-01-29 17:28] LABS: TROPONIN-I 0.016 ng/ml (0.000-0.120)
[2019-01-29 17:44] LABS: AADO2 Arterial 109.9 mmHg (7.0-24.0); Arterial Base Excess 2.6 mmol/L (-3.0-3); Arterial Blood Gas Oxygen Sat 98.8 mmHG (95.0-98.0); Arterial COHb 0.3 % (0.0-3.0); Arterial Fraction of Oxyhgb 98.2 % (93.0-99.0); Arterial HCO3 22.3 mmol/L (22.0-26.0); Arterial MetHb 0.3 % (0.0-1.5); Arterial pCO2 20.3 mmhg (35-45); Blood Gas IEPAP 15/5; Blood Gas PS 10; MODE MASK - BIPAP; Site Right Brachial
[2019-01-29 19:26] LABS: LACTIC ACID 3.4 mmol/L (0.5-2.0)
[2019-01-29] MEDS: VANCOMYCIN 1 GM (PMX) 250 ML IVPB (19:30)
[2019-01-29] MEDS: PIPER-TAZO 2.25 GM (PMX) 50 ML IVPB (19:30)
[2019-01-29] MEDS ORDERED: NORepinephrine 8MG/250 ML (PMX 250 ML (19:47)
[2019-01-29] MEDS: NORepinephrine 8MG/250 ML (PMX 250 ML IV (19:55)
[2019-01-29 19:56] LABS: ADD MAN DIFF? NO
[2019-01-29 20:05] LABS: WHITE BLOOD COUNT 11.5 10^3/ul (4.8-10.8)
[2019-01-29 20:05] LABS: BASOPHIL # 0.1 10^3/ul (0.0-0.1); BASOPHILS % 0.7 % (0.0-2.0); EOSINOPHILS # 0.2 10^3/ul (0.0-0.5); EOSINOPHILS % 1.5 % (0.0-7.0); HEMATOCRIT 23.2 % (42.0-52.0); HEMOGLOBIN 7.4 g/dl (14.0-18.0); LYMPHOCYTES # 1.6 10^3/ul (0.8-2.9); LYMPHOCYTES % 13.8 % (15.0-51.0); MEAN CORPUSCULAR HEMOGLOBIN 29.6 pg (29.0-33.0); MEAN CORPUSCULAR HGB CONC 31.9 g/dl (32.0-37.0); MEAN CORPUSCULAR VOLUME 92.8 fl (82.0-101.0); MEAN PLATELET VOLUME 12.5 fl (7.4-10.4); MONOCYTE # 0.5 10^3/ul (0.3-0.9); MONOCYTES % 4.2 % (0.0-11.0); NEUTROPHILS % 78.6 % (39.0-77.0); PLATELET COUNT 105 10^3/UL (140-415); RED CELL DISTRIBUTION WIDTH 15.1 % (11.5-14.5)
[2019-01-29 20:44] LABS: IMMEDIATE SPIN CROSSMATCH 1 6
[2019-01-29] MEDS ORDERED: SOD CHLORIDE 0.9% 500 ML (21:20)
[2019-01-29] MEDS ORDERED: IODIXANOL LOCM 100 ML BTL (21:20)
[2019-01-30] MEDS: morphine 2 MG INJ IV ×3 (01:02→19:48)
[2019-01-30] MEDS: SOD CHLORIDE 0.9% 1,000 ML IV (01:02)
[2019-01-30] MEDS: NORepinephrine 8MG/250 ML (PMX 250 ML IV (03:53)
[2019-01-30 05:12] LABS: ADD MAN DIFF? NO
[2019-01-30 05:15] LABS: WHITE BLOOD COUNT 12.4 10^3/ul (4.8-10.8)
[2019-01-30 05:15] LABS: ABNORMAL IP MESSAGE 1; BASOPHIL # 0.1 10^3/ul (0.0-0.1); BASOPHILS % 0.4 % (0.0-2.0); EOSINOPHILS % 0.2 % (0.0-7.0); HEMATOCRIT 26.8 % (42.0-52.0); HEMOGLOBIN 8.6 g/dl (14.0-18.0); LYMPHOCYTES # 0.5 10^3/ul (0.8-2.9); LYMPHOCYTES % 4.2 % (15.0-51.0); MEAN CORPUSCULAR HEMOGLOBIN 29.3 pg (29.0-33.0); MEAN CORPUSCULAR HGB CONC 32.1 g/dl (32.0-37.0); MEAN CORPUSCULAR VOLUME 91.2 fl (82.0-101.0); MEAN PLATELET VOLUME 12.2 fl (7.4-10.4); MONOCYTE # 0.6 10^3/ul (0.3-0.9); MONOCYTES % 4.9 % (0.0-11.0); NEUTROPHIL # 11.1 10^3/ul (1.6-7.5); NEUTROPHILS % 89.8 % (39.0-77.0); PLATELET COUNT 102 10^3/UL (140-415); POSITIVE DIFF @See below; RED BLOOD COUNT 2.94 10^6/ul (4.70-6.10); RED CELL DISTRIBUTION WIDTH 14.6 % (11.5-14.5)
[2019-01-30 05:52] LABS: ANION GAP 10 (5-13); BLOOD UREA NITROGEN 44 mg/dl (7-20); CALCIUM 8.2 mg/dl (8.4-10.2); CARBON DIOXIDE 25 mmol/L (21-31); CHLORIDE 102 mmol/L (97-110); CREATININE 8.69 mg/dl (0.61-1.24); Estimated GFR 6 mL/min (>60); GLUCOSE 188 mg/dl (70-220); POTASSIUM 4.6 mmol/L (3.5-5.1); SODIUM 137 mmol/L (135-144)
[2019-01-30 06:40] LABS: TROPONIN-I 0.077 ng/ml (0.000-0.120)
[2019-01-30] MEDS: ONDANSETRON 4 MG INJ IV ×3 (06:41→19:48)
[2019-01-30 14:51] LABS: HEMATOCRIT 21.7 % (42.0-52.0); HEMOGLOBIN 7.2 g/dl (14.0-18.0)
[2019-01-31 05:42] LABS: ADD MAN DIFF? NO
[2019-01-31 05:56] LABS: WHITE BLOOD COUNT 12.6 10^3/ul (4.8-10.8)
[2019-01-31 05:56] LABS: BASOPHILS % 0.3 % (0.0-2.0); EOSINOPHILS # 0.1 10^3/ul (0.0-0.5); EOSINOPHILS % 0.9 % (0.0-7.0); HEMATOCRIT 22.8 % (42.0-52.0); HEMOGLOBIN 7.5 g/dl (14.0-18.0); LYMPHOCYTES # 0.8 10^3/ul (0.8-2.9); MEAN CORPUSCULAR HEMOGLOBIN 30.1 pg (29.0-33.0); MEAN CORPUSCULAR HGB CONC 32.9 g/dl (32.0-37.0); MEAN CORPUSCULAR VOLUME 91.6 fl (82.0-101.0); MEAN PLATELET VOLUME 11.2 fl (7.4-10.4); MONOCYTE # 0.9 10^3/ul (0.3-0.9); MONOCYTES % 7.2 % (0.0-11.0); NEUTROPHIL # 10.7 10^3/ul (1.6-7.5); NEUTROPHILS % 84.8 % (39.0-77.0); PLATELET COUNT 101 10^3/UL (140-415); POSITIVE DIFF @See below; RED BLOOD COUNT 2.49 10^6/ul (4.70-6.10); RED CELL DISTRIBUTION WIDTH 15.3 % (11.5-14.5)
[2019-01-31 06:27] LABS: ANION GAP 10 (5-13); BLOOD UREA NITROGEN 61 mg/dl (7-20); CALCIUM 8.4 mg/dl (8.4-10.2); CARBON DIOXIDE 24 mmol/L (21-31); CHLORIDE 104 mmol/L (97-110); CREATININE 10.66 mg/dl (0.61-1.24); Estimated GFR 5 mL/min (>60); GLUCOSE 81 mg/dl (70-220); POTASSIUM 4.5 mmol/L (3.5-5.1); SODIUM 138 mmol/L (135-144)
[2019-01-31] MEDS: morphine 2 MG INJ IV ×2 (12:07→23:22)
[2019-01-31] MEDS: ONDANSETRON 4 MG INJ IV (12:07)
[2019-01-31] MEDS: METOPROLOL 100 MG TAB PO ×2 (13:34→23:22)
[2019-01-31 14:09] LABS: HEPATITIS B SURFACE ANTIGEN NEGATIVE (NEGATIVE)
[2019-01-31 19:52] LABS: HEMOGLOBIN 8.8 g/dl (14.0-18.0)
[2019-01-31] MEDS: EPOETIN ALFA-EPBX (ESRD) 3,000 UNIT/ML VIAL SC (21:25)
[2019-02-01] MEDS: ZOLPIDEM 5 MG TAB PO (00:34)
[2019-02-01 06:50] LABS: ADD MAN DIFF? NO
[2019-02-01 06:53] LABS: BASOPHILS % 0.3 % (0.0-2.0); EOSINOPHILS # 0.3 10^3/ul (0.0-0.5); EOSINOPHILS % 1.9 % (0.0-7.0); HEMATOCRIT 26.7 % (42.0-52.0); HEMOGLOBIN 8.5 g/dl (14.0-18.0); LYMPHOCYTES % 7.4 % (15.0-51.0); MEAN CORPUSCULAR HGB CONC 31.8 g/dl (32.0-37.0); MEAN CORPUSCULAR VOLUME 91.1 fl (82.0-101.0); MEAN PLATELET VOLUME 11.3 fl (7.4-10.4); MONOCYTE # 0.9 10^3/ul (0.3-0.9); NEUTROPHIL # 10.7 10^3/ul (1.6-7.5); NEUTROPHILS % 82.4 % (39.0-77.0); PLATELET COUNT 111 10^3/UL (140-415); POSITIVE DIFF @See below; RED BLOOD COUNT 2.93 10^6/ul (4.70-6.10); RED CELL DISTRIBUTION WIDTH 15.9 % (11.5-14.5)
[2019-02-01 07:12] LABS: ANION GAP 9 (5-13); BLOOD UREA NITROGEN 36 mg/dl (7-20); CALCIUM 8.8 mg/dl (8.4-10.2); CARBON DIOXIDE 29 mmol/L (21-31); CHLORIDE 101 mmol/L (97-110); CREATININE 8.69 mg/dl (0.61-1.24); Estimated GFR 6 mL/min (>60); POTASSIUM 4.4 mmol/L (3.5-5.1); SODIUM 139 mmol/L (135-144)
[2019-02-01 07:15] LABS: GLUCOSE 48 mg/dl (70-220)
[2019-02-01] MEDS: METOPROLOL 100 MG TAB PO ×2 (08:15→21:23)
[2019-02-01] MEDS: CEFTRIAXONE 1 GM/50 ML (PMX) 50 ML IVPB (09:32)
[2019-02-01] MEDS: DEXTROSE 10% 1,000 ML IV (11:03)
[2019-02-01] MEDS: ACCU-CHEK XX ×2 (16:09→21:00)
[2019-02-01 17:00] LABS: AADO2 Arterial 89.9 mmHg (7.0-24.0); Allen Test ACCEPTAB; Arterial Base Excess 2.1 mmol/L (-3.0-3); Arterial Blood Gas Oxygen Sat 92.5 mmHG (95.0-98.0); Arterial COHb 0.3 % (0.0-3.0); Arterial Fraction of Oxyhgb 91.9 % (93.0-99.0); Arterial HCO3 27.6 mmol/L (22.0-26.0); Arterial MetHb 0.3 % (0.0-1.5); Arterial pCO2 47.7 mmhg (35-45); MODE NASAL CANNULA; Site Right Radial
[2019-02-01] MEDS: GUAIFENESIN/DM 5ML CUP PO (23:36)
[2019-02-02 00:19] LABS: ADD UMIC YES; UR ASCORBIC ACID NEGATIVE (NEGATIVE); UR BACTERIA FEW /HPF (NONE SEEN); UR BILIRUBIN (Dip) NEGATIVE (NEGATIVE); UR BLOOD (Dip) 1+ mg/dL (NEGATIVE); UR CLARITY CLOUDY (CLEAR); UR COLOR YELLOW (YELLOW); UR GLUCOSE (Dip) 1+ mg/dL (NEGATIVE); UR KETONES (Dip) NEGATIVE (NEGATIVE); UR LEUKOCYTE ESTERASE (Dip) NEGATIVE Leu/ul (NEGATIVE); UR NITRITE (Dip) NEGATIVE (NEGATIVE); UR RBC 1 /HPF (0-5); UR SPECIFIC GRAVITY (Dip) 1.014 (1.003-1.030); UR SQUAMOUS EPITHELIAL CELL FEW /HPF (FEW); UR TOTAL PROTEIN (Dip) 2+ mg/dl (NEGATIVE); UR UROBILINOGEN (Dip) NEGATIVE (NEGATIVE); UR WBC 3 /HPF (0-5)
[2019-02-02] MEDS: ACCU-CHEK XX ×5 (01:00→17:00)
[2019-02-02 06:13] LABS: ADD MAN DIFF? NO
[2019-02-02 06:22] LABS: WHITE BLOOD COUNT 10.2 10^3/ul (4.8-10.8)
[2019-02-02 06:22] LABS: BASOPHILS % 0.3 % (0.0-2.0); EOSINOPHILS # 0.4 10^3/ul (0.0-0.5); EOSINOPHILS % 3.9 % (0.0-7.0); HEMATOCRIT 25.3 % (42.0-52.0); HEMOGLOBIN 8.1 g/dl (14.0-18.0); LYMPHOCYTES # 0.7 10^3/ul (0.8-2.9); LYMPHOCYTES % 6.9 % (15.0-51.0); MEAN CORPUSCULAR HEMOGLOBIN 29.6 pg (29.0-33.0); MEAN CORPUSCULAR VOLUME 92.3 fl (82.0-101.0); MEAN PLATELET VOLUME 11.3 fl (7.4-10.4); MONOCYTE # 0.6 10^3/ul (0.3-0.9); MONOCYTES % 5.6 % (0.0-11.0); NEUTROPHIL # 8.5 10^3/ul (1.6-7.5); NEUTROPHILS % 82.9 % (39.0-77.0); PLATELET COUNT 123 10^3/UL (140-415); RED BLOOD COUNT 2.74 10^6/ul (4.70-6.10); RED CELL DISTRIBUTION WIDTH 15.1 % (11.5-14.5)
[2019-02-02 06:44] LABS: ANION GAP 8 (5-13); BLOOD UREA NITROGEN 49 mg/dl (7-20); CALCIUM 8.8 mg/dl (8.4-10.2); CARBON DIOXIDE 27 mmol/L (21-31); CHLORIDE 99 mmol/L (97-110); Estimated GFR 5 mL/min (>60); GLUCOSE 86 mg/dl (70-220); PHOSPHORUS 4.1 mg/dl (2.5-4.9); POTASSIUM 4.4 mmol/L (3.5-5.1); SODIUM 134 mmol/L (135-144)
[2019-02-02 07:02] LABS: IRON 22 ug/dl (35-150)
[2019-02-02 07:12] LABS: % IRON SATURATION 14 % SAT (22-52); TOTAL IRON BINDING CAPACITY 157 ug/dl (241-421)
[2019-02-02] MEDS: CEFTRIAXONE 1 GM/50 ML (PMX) 50 ML IVPB (10:40)
[2019-02-02] MEDS: METOPROLOL 100 MG TAB PO (10:41)
[2019-02-02] MEDS: DEXTROSE 10% 1,000 ML IV (10:41)
[2019-02-02] MEDS: ACETAMINOPHEN 325 MG TAB PO (13:45)
[2019-02-02] MEDS: EPOETIN ALFA-EPBX (ESRD) 3,000 UNIT/ML VIAL SC (17:25)
== END 2019-02-02 18:50 | disposition home or self-care (01) | DRG 673 ==
LOC: 6WM 01-31 22:14 → E/R 16:26 → ICU 19:30
PROVIDERS: Internal Medicine
PROC: 04LA3DZ Occlusion of Left Renal Artery with Intraluminal Device, Percutaneous Approach (ICD-10-PCS; principal; 2019-01-29 21:38)
PROC: B410YZZ Fluoroscopy of Abdominal Aorta using Other Contrast (ICD-10-PCS; 2019-01-29 21:38)
PROC: B417YZZ Fluoroscopy of Left Renal Artery using Other Contrast (ICD-10-PCS; 2019-01-29 21:38)
PROC: 4A033R1 Measurement of Arterial Saturation, Peripheral, Percutaneous Approach (ICD-10-PCS; 2019-01-29 21:38)
PROC: 5A1D70Z Performance of Urinary Filtration, Intermittent, Less than 6 Hours Per Day (ICD-10-PCS; 2019-01-29 21:38)
PROC: 30233N1 Transfusion of Nonautologous Red Blood Cells into Peripheral Vein, Percutaneous Approach (ICD-10-PCS; 2019-01-29 21:38)
DX: N28.89 Other specified disorders of kidney and ureter (principal); R57.8 Other shock; R18.8 Other ascites; Q61.2 Polycystic kidney, adult type; D62 Acute posthemorrhagic anemia; I12.0 Hypertensive chronic kidney disease with stage 5 chronic kidney disease or end stage renal disease; R65.10 Systemic inflammatory response syndrome (SIRS) of non-infectious origin without acute organ dysfunction; N18.6 End stage renal disease; I25.2 Old myocardial infarction; K57.30 Diverticulosis of large intestine without perforation or abscess without bleeding; D17.79 Benign lipomatous neoplasm of other sites; E78.5 Hyperlipidemia, unspecified; I25.10 Atherosclerotic heart disease of native coronary artery without angina pectoris; E66.3 Overweight; N40.0 Benign prostatic hyperplasia without lower urinary tract symptoms; Z99.2 Dependence on renal dialysis; E16.2 Hypoglycemia, unspecified; R50.9 Fever, unspecified; D69.6 Thrombocytopenia, unspecified; Z95.5 Presence of coronary angioplasty implant and graft; Z79.82 Long term (current) use of aspirin; Z79.02 Long term (current) use of antithrombotics/antiplatelets
CPT/HCPCS: 36415; 36430; 36600; 70450; 71045; 74176; 75625; 75722; 80048; 80053; 81001; 82652; 82803; 82962; 83540; 83605; 84100; 84484; 85014; 85018; 85025; 85610; 85730; 86850; 86900; 86901; 86920; 87040-91; 87081; 87086; 87340; 90935; 93005; 94660; 99285-25